=== PATIENT | female | born 1985 | race Hispanic/Latino ===

== ENCOUNTER 2018-01-08 11:04 | Emergency (ER) | payer MEDICAID ==
[2018-01-08 11:27] VITALS: RESP 18; TEMP 99
--- NOTE | 2018-01-08 12:31 | C.PDOC ---
History Of Present Illness Patient is a 32 y/o female, , who presents to the ED with a complaint of sharp lower abdominal pain. Patient reports recently finding out she was 2 months ; denies any care. Patient admits experiencing sharp pelvic and lower back pain last night and this morning, saw questionable spotting. Denies any dysuria or medical problems. Time Seen by Provider: 01/08/18 11:59 Chief Complaint (Nursing): Medical Clearance History Per: Patient History/Exam Limitations: no limitations Onset/Duration Of Symptoms: Days Current Symptoms Are (Timing): Still Present Recent travel outside of the [place]: No Past Medical History Reviewed: Historical Data, Nursing Documentation, Vital Signs Vital Signs: Last Vital Signs Temp 99 F 01/08/18 11:15 Pulse 95 H 01/08/18 13:56 Resp 18 01/08/18 13:56 BP 109/74 01/08/18 13:56 Pulse Ox 98 01/08/18 14:03 - Medical History PMH: No Chronic Diseases Surgical History: (2) Family History: States: No Known Family Hx - Social History Hx Tobacco Use: No Hx Alcohol Use: No Hx Substance Use: No - Immunization History Hx Tetanus Toxoid Vaccination: Yes Hx Influenza Vaccination: Yes Hx Pneumococcal Vaccination: No Review Of Systems Except As Marked, All Systems Reviewed And Found Negative. Constitutional: Negative for: Fever, Chills Gastrointestinal: Positive for: Abdominal Pain (lower abdomen) Genitourinary: Positive for: Vaginal Bleeding (questionable spotting). Negative for: Dysuria Musculoskeletal: Positive for: Back Pain (lower back) Physical Exam - Physical Exam Additional Physical Exam Comments: Constitutional: No acute distress. Head: Normocephalic. Atraumatic. Eyes: PERRL. ENT: Moist mucous membranes. Neck: Supple. Cardiovascular: Regular rate. Radial pulse 2+ bilaterally. Chest: No tenderness. Respiratory: Clear to auscultation bilaterally. GI: Soft. Suprapubic tenderness. No rebound or guarding. Nondistended. Back: No CVA tenderness. Musculoskeletal: No tenderness or swelling of extremities. Skin: No rash. Neurologic: Alert, no focal deficit. ED Course And Treatment - Laboratory Results Result Diagrams: 01/08/18 12:27 01/08/18 12:27 O2 Sat by Pulse Oximetry: 98 Progress Note: Blood work, CBC, beta-HCG, Urine culture, and transvaginal US ordered. Tylenol 325mg administered. Medical Decision Making Medical Decision Making: US shows IUP with FHR, no bleeding, and closed cervix. O+. Patient discharged, threatened , f/u OBGYN, return to ED for worsening pain, fever, bleeding , or any other problem. Disposition - Disposition Disposition: HOME/ ROUTINE Disposition Time: 14:03 Condition: STABLE Additional Instructions: FINDINGS: UTERUS: Single Live intrauterine gestation. CRL is 9 mm, equivalent to 6 weeks 6 days gestational age. Gestational sac diameter equivalent to 7 weeks 0 days gestation age (Ultrasound estimated): 7 weeks 0 days Date of delivery (Ultrasound estimated) : 08/27/2018 Heart rate: 115 bpm. Jory-gestational hemorrhage: None. 2 mm yolk sac. Uterus measures 10.3 x 7.3 x 6.8 cm. No mass CERVIX: Assessed by transvaginal technique. Cervix closed and measures 4.0 cm in length. . No cervical abnormality seen. RIGHT OVARY: Measures 3.2 x 2.2 x 3.0 cm. No mass. Normal flow. LEFT OVARY: Measures 3.3 x 2.0 x 2.4 cm. No mass. Normal flow. FREE FLUID: None. OTHER FINDINGS: None. IMPRESSION: Single live intrauterine gestation of approximately 7 weeks 0 days. Heart rate 115 beats per minute. No subchorionic hemorrhage. Cervix long and closed. Instructions: Threatened Miscarriage Forms: [facility] (Spanish), Work Excuse - Clinical Impression Clinical Impression: Threatened - Scribe Statement The provider has reviewed the documentation as recorded by the Scribroque Sotelo All medical record entries made by the Scribe were at my direction and personally dictated by me. I have reviewed the chart and agree that the record accurately reflects my personal performance of the history, physical exam, medical decision making, and the department course for this patient. I have also personally directed, reviewed, and agree with the discharge instructions and disposition.
[2018-01-08 12:32] LABS: SQUAMOUS EPITHIAL 7 /hpf (0-5); URINE BILIRUBIN NEGATIVE (NEGATIVE); URINE BLOOD NEGATIVE (NEGATIVE); URINE CALCIUM OXALATE CRYSTALS MOD /hpf (<OCC); URINE CLARITY Hazy (Clear); URINE COLOR Yellow (YELLOW); URINE GLUCOSE (UA) NORMAL (Normal); URINE LEUKOCYTE ESTERASE NEG Leu/uL (Negative); URINE PROTEIN NEGATIVE (NEGATIVE)
[2018-01-08 12:33] LABS: BASO % 0.8 % (0.0-2.0); EOS # 0.1 K/uL (0.0-0.7); EOS % 1.3 % (0.0-4.0); HEMOGLOBIN 12.8 g/dL (11.0-16.0); LYMPH # 1.5 K/uL (1.0-4.3); LYMPH % 28.4 % (20.0-40.0); MEAN CELL VOLUME 85.6 fL (81.0-99.0); MEAN CORPUSCULAR HEMOGLOBIN 28.6 pg (27.0-31.0); MEAN CORPUSCULAR HGB CONC 33.4 g/dL (33.0-37.0); MEAN PLATELET VOLUME 9.3 fL (7.2-11.7); MONO # 0.5 K/uL (0.0-0.8); MONO % 10.1 % (0.0-10.0); NEUT # 3.2 K/uL (1.8-7.0); NEUT % 59.4 % (50.0-75.0); NRBC % 0.1 % (0.0-2.0); RBC 4.49 Mil/uL (3.80-5.20); WHITE BLOOD COUNT 5.3 K/uL (4.8-10.8)
[2018-01-08 12:48] LABS: ALB/GLOB RATIO 1.6 (1.0-2.1); ALBUMIN 4.9 g/dL (3.5-5.0); ALT/SGPT 29 U/L (9-52); AST/SGOT 24 U/L (14-36); BLOOD UREA NITROGEN 13 mg/dL (7-17); GFR AFRICAN-AMERICAN > 60; GFR NON-AFRICAN AMERICAN > 60
[2018-01-08 13:56] VITALS: BP 109/74; PULSE 95
--- NOTE | 2018-01-08 14:00 | US ---
PROCEDURE: OB Pelvic Ultrasound HISTORY: vag bleeding in , assess cervix COMPARISON: None available. FINDINGS: UTERUS: Single Live intrauterine gestation. CRL is 9 mm, equivalent to 6 weeks 6 days gestational age. Gestational sac diameter equivalent to 7 weeks 0 days gestation age (Ultrasound estimated): 7 weeks 0 days Date of delivery (Ultrasound estimated) : 08/27/2018 Heart rate: 115 bpm. Jory-gestational hemorrhage: None. 2 mm yolk sac. Uterus measures 10.3 x 7.3 x 6.8 cm. No mass CERVIX: Assessed by transvaginal technique. Cervix closed and measures 4.0 cm in length. . No cervical abnormality seen. RIGHT OVARY: Measures 3.2 x 2.2 x 3.0 cm. No mass. Normal flow. LEFT OVARY: Measures 3.3 x 2.0 x 2.4 cm. No mass. Normal flow. FREE FLUID: None. OTHER FINDINGS: None. IMPRESSION: Single live intrauterine gestation of approximately 7 weeks 0 days. Heart rate 115 beats per minute. No subchorionic hemorrhage. Cervix long and closed.
[2018-01-08 14:04] VITALS: O2SAT 98
== END 2018-01-08 14:14 | disposition home or self-care (01) ==
LOC: C.ER 11:04
DX: O20.0 Threatened abortion (principal); Z3A.01 Less than 8 weeks gestation of pregnancy